=== PATIENT | female | born 2000 | race Caucasian/White ===

== ENCOUNTER 2023-11-24 10:25 | Observation (INO) | payer OTHER, SELFPAY ==
[2023-11-24] VITALS (17 sets, daily range): BP systolic 113–133; BP diastolic 59–81; PULSE 67–117; RESP 12–18; TEMP 35.8–36.6; O2SAT 96–100; BMI 29.4
--- NOTE | 2023-11-24 10:53 | CT_ITS ---
STUDY: CT ABDOMEN AND PELVIS WITH CONTRAST REASON FOR EXAM: Female, 23 years old. RLQ pain RADIATION DOSAGE (If Supplied By Facility): CTDIvol = ( 10.61 ) mGy, DLP = ( 787.20 ) mGycm TECHNIQUE: Transaxial images were obtained from the dome of the diaphragm to the symphysis pubis without oral contrast. IV 100mL Isovue-370 was administered. Sagittal and coronal images were reconstructed. Individualized dose optimization techniques were used for this CT. COMPARISON: None. FINDINGS: The visualized lung bases are unremarkable. The visualized portions of the heart are within normal limits. Normal liver. Normal gallbladder and extrahepatic biliary system. Normal spleen. Normal pancreas. Normal bilateral adrenal glands. Normal right kidney. Normal left kidney. Normal visualized stomach. There is thickening of the terminal ileum. Circumferential wall thickening with increased markings in the surrounding mesenteric fat involving the right hemicolon. This is in keeping with a colitis. There is non-visualization of the appendix. Normal abdominal aorta. Normal inferior vena cava. Normal retroperitoneum. Normal urinary bladder. Normal abdominal wall. Normal osseous structures. CT/Abdomen/Pelvis W IV Cont ONLY IMPRESSION: Findings suggestive of colitis of the right hemicolon with circumferential thickening of the terminal ileum. Electronically Signed: Jorge Knowles MD at 11:53 EDT ,
--- NOTE | 2023-11-24 10:53 | EX.ED.DYSGE1 ---
HPI History of Present Illness Chief Complaint: Abd Pain Informant: patient Onset/Context/Timing Onset: Days (2 days) Context: Gradual Onset Narrative Narrative: Patient presents secondary to right lower quadrant abdominal pain. Pain started yesterday and has been continuous in nature but does wax and wane. She states it initially started like a wringing sensation and now feels like a constant pressure. No fever or chills. She has had some diarrhea but no associated blood. No urinary symptoms. No known history of ovarian cyst. Last menstrual cycle was 3 and half weeks ago. [facility] Medical History (Updated 11/24/23 @ 14:[address] Payal Dong MD) Depression ADHD Tonsillectomy planned Home Medications ?Medication ?Instructions ?Recorded ?Last Taken ?Type dextroamphetamine-amphetamine 5 mg 10 mg PO DAILY 11/24/23 Unknown History tablet (Adderall) sertraline 20 mg/mL oral 20 mg PO DAILY 11/24/23 Unknown History concentrate (Zoloft) Allergy/AdvReac Type Severity Reaction Status Date / Time No Known Allergies Allergy Verified 11/24/23 10:26 Social History Smoking Status: Never smoker ROS ROS ED Constitutional Constitutional ED: Denies chills or fever(s) Eyes Eyes: Denies discharge from eye(s) ENT ENT ED: Denies discharge from eye(s), rhinorrhea or sore throat Cardiovascular Cardiovascular: Denies chest pain or palpitations Respiratory/Chest Respiratory/Chest: Denies cough or dyspnea Gastrointestinal Gastrointestinal: Reports abdominal pain, diarrhea and nausea; Denies vomiting Genitourinary Genitourinary ED: Denies dysuria Musculoskeletal Musculoskeletal: Denies back pain or extremity pain Integumentary Denies Abrasions or rash Neurologic Neurologic: Denies headache(s) or weakness Psychiatric Psychiatric: Denies anxiety or depression Allergic/Immunologic Allergic/Immunologic ED: Denies lip swelling or urticaria EXAM Physical Exam Const Vital Signs: 11/24/23 10:27 11/24/23 10:30 11/24/23 11:43 Temperature 96.5 F L 96.5 F L 97.6 F L Temperature Source Temporal Temporal Pulse Rate 92 92 88 Respiratory Rate 18 18 18 Blood Pressure 133/81 H 133/81 H 133/81 H Blood Pressure Mean 98 98 98 Pulse Ox 100 100 99 Oxygen Delivery Method Room Air 11/24/23 12:26 11/24/23 13:48 11/24/23 13:48 Temperature 98 F Temperature Source Oral Pulse Rate 72 67 71 Respiratory Rate 16 18 18 Blood Pressure 124/75 H 123/76 H 123/76 H Blood Pressure Mean 91 91 91 Pulse Ox 97 98 98 Oxygen Delivery Method Room Air Room Air Room Air Positive well nourished and well developed General Appearance ED: well developed HEENT Reports moist mucous membranes Eyes EOMs intact bilaterally Chest Wall inspection of chest normal and palpation of chest normal Resp normal respiratory effort and clear to auscultation bilaterally Cardio regular rate and regular rhythm GI GI Narrative: Abdomen soft with moderate tenderness in the right lower quadrant. Hypoactive bowel sounds. No guarding or rebound. Extremity normal to inspection Neuro oriented x3 and no sensory deficits noted Motor Exam: strength 5/5 throughout Psych mental status grossly normal Skin no rashes or lesions noted MDM MDM MDM Narrative Medical decision making narrative: IV line established. Patient declines pain medication at this time. Labwork obtained to evaluate for leukocytosis, anemia, and electrolyte derangement. Urinalysis obtained to evaluate for infection/hematuria. CT scan with IV contrast obtained to evaluate for potential appendicitis. History & Record Review Discussion w/independent historian: Patient Lab Data Attestation: I reviewed the patient's lab results. Labs: Laboratory Results - last 24 hr 11/24/23 10:40 WBC 7.8 RBC 4.68 Hgb 12.9 Hct 41.2 MCV 88.0 MCH 27.6 MCHC 31.3 L RDW Std Deviation 42.0 RDW Coeff of Shonda 12.9 Plt Count 314 MPV 10.0 Immature Gran % (Auto) 0.100 Neut % (Auto) 62.2 Lymph % (Auto) 29.9 [place] % (Auto) 4.9 Eos % (Auto) 2.3 Baso % (Auto) 0.6 Absolute Neuts (auto) 4.9 Absolute Lymphs (auto) 2.33 Nucleated RBC % 0 Sodium 138 Potassium 3.7 Chloride 108 H Carbon Dioxide 25.0 Anion Gap 5 BUN 10 Creatinine 0.88 Estim Creat Clear Calc 96.71 Est GFR (MDRD) Af Amer 102 Est GFR (MDRD) Non-Af 85 BUN/Creatinine Ratio 11.4 Glucose 96 Calcium 9.7 Serum , Qual NEGATIVE Urine Color Yellow Urine Clarity Sl. Cloudy Urine pH 6.0 Ur Specific [place] 1.010 Urine Protein Negative Urine Glucose (UA) Normal Urine Ketones Negative Urine Occult Blood Negative Urine Nitrite Negative Urine Bilirubin Negative Urine Urobilinogen Normal Ur Leukocyte Esterase 25 H Urine RBC 0 SEEN Urine WBC 0-5 SEEN Ur Squamous Epith Cells 0-5 SEEN Urine Bacteria 2+ Urine Mucus 0 SEEN Radiography Diagnostic Testing: Clinical Impression(s) from Imaging Studies Abdomen/Pelvis CT 11/24/23 10:53 IMPRESSION: Findings suggestive of colitis of the right hemicolon with circumferential thickening of the terminal ileum. Electronically Signed: Jorge Knowles MD at 11:53 EDT , Abdomen CT 11/24/23 12:24 IMPRESSION: Findings suggestive of appendicitis. Electronically Signed: Jorge Knowles MD at 14:30 EDT , Treatment and Re-Evaluation :: White blood cell count is normal at 7.8 with 62% neutrophils. Hemoglobin is 12.9. Chemistry studies unremarkable. Urinalysis reveals no evidence of acute infection but does have 2+ bacteria. test negative. Initial CT scan with IV contrast is read by radiology as findings suggestive of colitis of the right hemicolon with circumferential thickening of the terminal ileum. Just after the patient got scans, Dr. Daniel was in the ER to see another patient. I reviewed the CT images with him. He was concerned the patient had appendicitis. After the read comes back with possible colitis, I spoke with Dr. Daniel again. He asked that we repeat the CT scan with p.o. contrast. The reading on the second CT is read as acute appendicitis. JHONATAN for the surgical group is in the room evaluate the patient at this time and has already ordered antibiotics. Discharge Plan Triage Chief Complaint: Abd Pain ED Provider: Payal Dong Dx/Rx/DC Orders Clinical Impression: Acute appendicitis Prescriptions: No Action dextroamphetamine-amphetamine [Adderall] 5 mg tablet 10 mg PO DAILY sertraline [Zoloft] 20 mg/mL concentrate 20 mg PO DAILY Primary Care Provider: Rere Aceves NP Referrals: Rere Aceves NP, [employer] [Primary Care Provider] - Print Language: Polish Disposition Disposition: Acute Care [facility]
[2023-11-24 10:58] LABS: Mucous, Urine 0 SEEN /hpf (<or=2+); Red Blood Cells-Urine 0 SEEN /hpf (0-5)
[2023-11-24] MEDS: 0.9% Normal Saline (1000mL) 1,000 ML 150 ML IV (11:00)
[2023-11-24 11:01] LABS: Color, Urine Yellow (Yellow); Glucose, Dipstick Normal (Normal); Ketone-Dipstick Negative (Negative); Leukocyte Esterase-Dipstick 25 /ul (Negative); Nitrite-Dipstick Negative (Negative); Occult Blood-Urine Negative /ul (Negative); Protein-Dipstick Negative (Negative); Urine Bilirubin Dipstick Negative (Negative); Urine Clarity Sl. Cloudy (Clear); Urine Urobilinogen Normal (Normal)
[2023-11-24 11:05] LABS: Absolute Lymphocyte Count 2.33 X10^3/uL (0.83-4.51); Absolute Neutrophil Count 4.9 X10^3/uL (2.0-7.7); Basophil# 0.05 X10^3/uL; Basophil% 0.6 % (0-1); Eosinophil# 0.18 X10^3/uL; Eosinophils% 2.3 % (0-5); Hematocrit 41.2 % (37-47); Hemoglobin 12.9 g/dL (12.0-15.0); Lymphocyte # 2.33 X10^3/ul (0.83-4.51); Lymphocyte % 29.9 % (19-41); Mean Corp Hgb Conc 31.3 g/dL (32-36); Mean Corpuscular Hgb 27.6 pg (27.0-32.0); Monocyte# 0.38 X10^3/uL; Monocyte% 4.9 % (0-10); NRBC Flagged by Analyzer 0 % (0-5); Neutrophil # 4.85 X10^3/uL (2.7-7.7); Neutrophil % 62.2 % (47-70); Platelet Count 314 K/mm3 (150-450); RBC Distribution Width CV 12.9 % (11.6-14.6); Red Blood Count 4.68 M/mm3 (4.2-5.4); White Blood Count 7.8 K/mm3 (4.4-11.0)
[2023-11-24 11:09] LABS: Bacteria 2+ /hpf (None Seen); Squamous Epithelial Cells - UA 0-5 SEEN /hpf (5-10); White Blood Cells 0-5 SEEN /hpf (0-5)
[2023-11-24 11:11] LABS: Internal QC Validated? YES +Cl - CLEAR BKGD; Pregnancy, Serum, hCG Quali. NEGATIVE Negative
[2023-11-24 11:16] LABS: Anion Gap 5 (5-15); BUN 10 mg/dL (7-18); BUN/Creat Ratio 11.4 RATIO (10-20); Calcium,Total 9.7 mg/dL (8.5-10.1); Chloride 108 mmol/L (98-107); Creatinine, Serum 0.88 mg/dL (0.55-1.02); EST Glomerular Filtration Rate 85 mL/min (>60); Est Glom Filt Rate - Afr Amer 102 mL/min (>60); Estimated Creatinine Clearance 96.71 ml/min; Glucose 96 mg/dL (74-106); Potassium 3.7 mmol/L (3.5-5.1); Sodium Level 138 mmol/L (136-145)
--- NOTE | 2023-11-24 12:24 | CT_ITS ---
STUDY: CT ABDOMEN AND PELVIS WITHOUT CONTRAST REASON FOR EXAM: Female, 23 years old. RLQ pain -- PO CONTRAST ONLY RADIATION DOSAGE (If Supplied By Facility): CTDIvol = ( 11.42 ) mGy, DLP = ( 585.27 ) mGycm TECHNIQUE: Transaxial images were obtained from the dome of the diaphragm to the symphysis pubis without oral contrast, and without intravenous contrast. Sagittal and coronal images were reconstructed. Individualized dose optimization techniques were used for this CT. COMPARISON: Comparison is made with prior study done earlier in the day. FINDINGS: The visualized lung bases are unremarkable. The visualized portions of the heart are within normal limits. Normal liver. Normal gallbladder and extrahepatic biliary system. Normal spleen. Normal pancreas. Normal bilateral adrenal glands. Normal right kidney. Normal left kidney. Normal visualized stomach. Normal small intestine. Normal colon. There is a tubular, thick-walled appendix (>7mm), consistent with acute appendicitis. Normal abdominal aorta. Normal inferior vena cava. Normal retroperitoneum. Normal urinary bladder. Normal abdominal wall. Normal osseous structures. CT/Abdomen/Pel W ORAL Cont Only IMPRESSION: Findings suggestive of appendicitis. Electronically Signed: Jorge Knowles MD at 14:30 EDT ,
[2023-11-24] MEDS: Ondansetron 4 MG/2 ML Vial IV (12:29)
[2023-11-24] MEDS: Morphine 4 MG/ML Syringe IV (12:30)
[2023-11-24] MEDS: HYDROmorphone 0.5 MG/0.5 ML SYRINGE IV (13:57)
--- NOTE | 2023-11-24 14:11 | ED.RN ---
Pt complaining of chest pain. Dr. Dong aware
[2023-11-24] MEDS: Piperacil/Tazobactam 3.375 GM in 0.9% Normal Saline (50mL MB+) 50 ML IV (14:50)
--- NOTE | 2023-11-24 15:04 | PCM.HP.STD ---
HPI - General General Date of Admission: 11/24/23 Date of Service: 11/24/23 Chief Complaint: Right lower quadrant pain HPI Narrative JATIN YEH, is a 23 F who presents with a 1 day history of right lower quadrant pain. Patient notes yesterday morning feeling nauseated. Patient notes abdominal pain started with the sensation of wanting to have a bowel movement. She attempted and was unable to relieve her pain. She then noted a sharp, twisting sensation in the right lower quadrant. She attempted to have a bowel movement again without any relief. Patient denies vomiting. She notes lack of appetite. She denies fever. She notes the pain continued ,which brought her into the ED. Patient notes having a previous tonsillectomy without any concerns or side effects from anesthesia. She denies any previous abdominal surgeries. She notes having EKG's completed for sports physical. She notes following having COVID, she had an abnormal EKG which lead to an ECHO. She notes the ECHO was normal and was not instructed to follow-up with a community relations advisor. She denies any pulmonary issues. She was recently on an antibiotic 1 week ago for a stye in her eye. She notes this has resolved. Patient takes Adderall, Zoloft and control on a daily basis. CT scan of the ab/pel demonstrated colitis at the terminal ileum. CT scan was repeated with oral contrast and demonstrated acute appendicitis. WBC 7.8, Hgb 12.9, Hct 41.2 and plt count 314. No left shift. [facility] Medical History (Updated 11/24/23 @ 15:15 by Silvia ISRAEL PA-C) Depression ADHD Tonsillectomy planned Home Medications ?Medication ?Instructions ?Recorded ?Last Taken ?Type dextroamphetamine-amphetamine 5 mg 10 mg PO DAILY 11/24/23 Unknown History tablet (Adderall) sertraline 20 mg/mL oral 20 mg PO DAILY 11/24/23 Unknown History concentrate (Zoloft) Allergy/AdvReac Type Severity Reaction Status Date / Time No Known Allergies Allergy Verified 11/24/23 10:26 Social History Smoking Status: Never smoker ROS Constitutional Constitutional: Reports systems reviewed and no addt'l complaints, except as documented Eyes Eyes: Reports systems reviewed and no addt'l complaints, except as documented ENT HEENT: Reports systems reviewed and no addt'l complaints, except as documented Cardiovascular Cardiovascular: Reports systems reviewed and no addt'l complaints, except as documented Respiratory/Chest Respiratory/Chest: Reports systems reviewed and no addt'l complaints, except as documented Gastrointestinal Gastrointestinal: Reports systems reviewed and no addt'l complaints, except as documented Genitourinary Genitourinary: Reports systems reviewed and no addt'l complaints, except as documented Musculoskeletal Musculoskeletal: Reports systems reviewed and no addt'l complaints, except as documented Integumentary Integumentary: Reports systems reviewed and no addt'l complaints, except as documented Neurologic Neurologic: Reports systems reviewed and no addt'l complaints, except as documented Psychiatric Psychiatric: Reports systems reviewed and no addt'l complaints, except as documented Endocrine Endocrinology: Reports systems reviewed and no addt'l complaints, except as documented Hematologic/Lymphatic Hematologic/Lymphatic: Reports systems reviewed and no addt'l complaints, except as documented Allergic/Immunologic Allergic/Immunologic: Reports systems reviewed and no addt'l complaints, except as documented Vital Signs Vital Signs Vital Signs: 11/24/23 10:27 11/24/23 10:30 11/24/23 11:43 Temperature 96.5 F L 96.5 F L 97.6 F L Temperature Source Temporal Temporal Pulse Rate 92 92 88 Respiratory Rate 18 18 18 Blood Pressure 133/81 H 133/81 H 133/81 H Blood Pressure Mean 98 98 98 Pulse Ox 100 100 99 Oxygen Delivery Method Room Air 11/24/23 12:26 11/24/23 13:48 11/24/23 13:48 Temperature 98 F Temperature Source Oral Pulse Rate 72 67 71 Respiratory Rate 16 18 18 Blood Pressure 124/75 H 123/76 H 123/76 H Blood Pressure Mean 91 91 91 Pulse Ox 97 98 98 Oxygen Delivery Method Room Air Room Air Room Air 11/24/23 14:49 Temperature 97.8 F Temperature Source Pulse Rate 82 Respiratory Rate 12 Blood Pressure 119/61 Blood Pressure Mean 80 Pulse Ox 99 Oxygen Delivery Method Weight Weight: 166 lb 4.8 oz Body Mass Index (BMI) 29.4 Physical Exam Const alert, oriented x3 and no apparent distress HEENT normocephalic and head/scalp atraumatic Eyes PERRL Neck full ROM Lymph Lymphatic: no lymphadenopathy noted Resp normal respiratory effort and clear to auscultation bilaterally Cardio regular rate and regular rhythm GI GI Narrative: Abdomen- soft, tenderness with guarding in the RLQ, hypoactive bowel sounds. Positive McBurney's. no CVA tenderness Back/Spine no CVA tenderness Extremity normal to inspection Skin no rashes or lesions noted Neuro no focal motor deficits and no sensory deficits noted Psych mental status grossly normal and thought process normal Results Lab / Micro Data 11/24/23 10:40 11/24/23 10:40 Labs: Laboratory Results - last 24 hr 11/24/23 10:40: WBC 7.8, RBC 4.68, Hgb 12.9, Hct 41.2, MCV 88.0, MCH 27.6, MCHC 31.3 L, RDW Std Deviation 42.0, RDW Coeff of Shonda 12.9, Plt Count 314, MPV 10.0, Immature Gran % (Auto) 0.100, Neut % (Auto) 62.2, Lymph % (Auto) 29.9, [place] % (Auto) 4.9, Eos % (Auto) 2.3, Baso % (Auto) 0.6, Absolute Neuts (auto) 4.9, Absolute Lymphs (auto) 2.33, Nucleated RBC % 0, Sodium 138, Potassium 3.7, Chloride 108 H, Carbon Dioxide 25.0, Anion Gap 5, BUN 10, Creatinine 0.88, Estim Creat Clear Calc 96.71, Est GFR (MDRD) Af Amer 102, Est GFR (MDRD) Non-Af 85, BUN/Creatinine Ratio 11.4, Glucose 96, Calcium 9.7, Serum , Qual NEGATIVE, Urine Color Yellow, Urine Clarity Sl. Cloudy, Urine pH 6.0, Ur Specific [place] 1.010, Urine Protein Negative, Urine Glucose (UA) Normal, Urine Ketones Negative, Urine Occult Blood Negative, Urine Nitrite Negative, Urine Bilirubin Negative, Urine Urobilinogen Normal, Ur Leukocyte Esterase 25 H, Urine RBC 0 SEEN, Urine WBC 0-5 SEEN, Ur Squamous Epith Cells 0-5 SEEN, Urine Bacteria 2+, Urine Mucus 0 SEEN Imaging Radiology Impression Abdomen/Pelvis CT 11/24/23 10:53 IMPRESSION: Findings suggestive of colitis of the right hemicolon with circumferential thickening of the terminal ileum. Electronically Signed: Jorge Knowles MD at 11:53 EDT , Abdomen CT 11/24/23 12:24 IMPRESSION: Findings suggestive of appendicitis. Electronically Signed: Jorge Knowles MD at 14:30 EDT , Assessment & Plan Assessment/Plan (1) Acute appendicitis: QUALIFIERS: Acute appendicitis type: with localized peritonitis Appendicitis gangrene presence: unspecified whether gangrene present Appendicitis perforation presence: unspecified whether perforation present Appendicitis abscess presence: unspecified whether abscess present Qualified Code(s): K35.30 - Acute appendicitis with localized peritonitis, without perforation or gangrene PLAN: I am seeing this patient in conjunction with Dr. Daniel. Patient presented with a 1 day history of right lower quadrant pain with associated nausea. CT scan with oral contrast confirms appendicitis. Dr. Daniel will plan to perform a laparoscopic appendectomy with possible ileocecectomy and possible drain placement if perforation is found. Procedure details, risks and benefits have been explained. Patient and her parents have had the opportunity to ask and have questions answered. Patient verbally understands and agrees with the plan. Patient is currently in school to become a teacher. Patient is aware that she may need to stay overnight for observation and is agreeable to this. Thank you for allowing us to participate in this patient's care. Charges/Coding Visit Charges OBSV E&M: 87609 Observ/hosp same date L2
--- NOTE | 2023-11-24 15:50 | PRE.ANES_ITS ---
ASA Classification* ASA Classification ASA Classification: 1 Assessment & Plan Anesthesia* Anesthesia Assessment Anesthesia Assessment: Discussed sedation and/or anesthesia options, risks, benefits, and alternatives with patient/parents/legal guardian/POA. Questions invited. The patient/parents/legal guardian/POA seems to understand and agrees to proceed with anesthesia plan. Reviewed the physical assessment, medical history, allergy history and patient home medications list prior to surgery/procedure/anesthetic and documented any changes. Performed airway and anesthesia risk assessments. Anesthesia Type Anesthesia Type: General (Patient noted adverse reaction to dilaudid) History Source History Obtained from:: Patient and Chart Pre-Assessment Diagnosis/Proposed Procedure Planned Operative Procedure(s): Laparoscopic appendectomy Anesthesia History Anesthesia History - circuit recorder: Anesthesia History - circuit recorder Hx Hospitalization Any Problems With Anesthesia No 11/24/23 14:54 Cholinesterase deficiency You/Your Family Experience fever (hyperthermia) with Relationship Recent Exposure to Contagious Disease Does patient have nerve No 11/24/23 14:54 stimulator Patient instructed to have device shut off --Does patient have Pacemaker or ICD? When Was Last Pacemaker Check QUESTION #4 FULL TEXT: You/Your Family Experience fever (hyperthermia) with Anesthesia Last Oral Intake Last Oral intake: Last Oral Intake NPO since Meds taken in AM with sips of water? Meds patient instructed to take am of surgery PONV PONV - circuit recorder: PONV - circuit recorder Female HX of Motion Sickness HX of N/V After Surgery Non-Smoker Duration of Surgery greater than 60 minutes Number of Risk Factors PONV Score Height & Weight Height & Weight: Anesthesia: Height & Weight Height 5 ft 3 in 11/24/23 14:54 Weight: 75.432 kg 11/24/23 14:54 Body Mass Index (BMI) 29.4 11/24/23 14:54 Respiratory Assessment Respiratory Assessment - circuit recorder: Respiratory Tract Infection Hx - circuit recorder Hx Respiratory Tract Infection STOP Sleep Apnea STOP Sleep Apnea - circuit recorder: STOP Sleep Apnea - circuit recorder Hx Hypertension No 11/24/23 14:54 Hx Sleep Apnea No 11/24/23 14:54 CPAP BIPAP Do you snore loudly (louder No 11/24/23 14:54 than talking or can be heard Do you often feel tired/ No 11/24/23 14:54 fatigued/ sleepy during daytime? Has anyone observed you stop No 11/24/23 14:54 breathing during sleep? STOP Results Negative 11/24/23 14:54 QUESTION #5 FULL TEXT : Do you snore loudly (louder than talking or can be heard through closed doors)? Tobacco Use History Tobacco Use History - circuit recorder: Tobacco Use History - circuit recorder Tobacco Use Smoking Status Never smoker 11/24/23 10:42 Hx Tobacco Use Years Smoking Packs Smoked per Day Smoking Cessation Date was within the last 15 years Hx Smoking Cessation Date Hx Smoking Cessation Counseling Hematologic Medial History Hematologic Hx - circuit recorder: Hematologic Medical Hx - contact manager Hx of Blood Transfusion Hx of Transfusion in last 3 Months Date of Last Transfusion (if within last 3 months) Ever experience any problems with transfusion(s)? Specify any problems Hx of Preganancy in last 3 Months Nurse Filling Out Transfusion & Questions: Date: Time: Patient unable to answer at this time (ie. confused, unrespo /Reproduction History /Reproductive History - circuit recorder: /Reproductive Hx- circuit recorder Hx Now Gestational Age (in weeks): EDC: Hx Hx Para Hx Section SAB No 11/24/23 10:27 Any additional information?: Yes Hx Now: No : No Active Medications Active Medications: Current Medications Generic Name Dose Route Start Last Admin Trade Name Freq PRN Reason Stop Dose Admin Sodium Chloride 1,000 mls @ 150 mls/hr 11/24/23 10:55 11/24/23 11:00 IV 150 mls/hr .[id number] JEANE Administration Anesthesia Focused Assessment* Temperature: 97.8 F Pulse Rate: 82 Blood Pressure: 119/61 Respiratory Rate: 12 Pulse Ox: 99 Airway Assessment Mouth opens: >3 cm Mallampati Score: II Teeth Condition: Chipped/Broken (#8 previously chipped and now bonded) Neck Range of motion (ROM): Full ROM Focused Labs Anesthesia Preop lab: CBC WBC 7.8 K/mm3 (4.4-11.0) 11/24/23 10:40 RBC 4.68 M/mm3 (4.2-5.4) 11/24/23 10:40 Hgb 12.9 g/dL (12.0-15.0) 11/24/23 10:40 Hct 41.2 % (37-47) 11/24/23 10:40 Plt Count 314 K/mm3 (150-450) 11/24/23 10:40 CHEMISTRY Potassium 3.7 mmol/L (3.5-5.1) 11/24/23 10:40 Sodium 138 mmol/L (136-145) 11/24/23 10:40 BUN 10 mg/dL (7-18) 11/24/23 10:40 Creatinine 0.88 mg/dL (0.55-1.02) 11/24/23 10:40 Glucose 96 mg/dL (74-106) 11/24/23 10:40 COAG Review of Systems (Anesthesia) ROS Narrative System reviewed and no additional complaints, except as documented. [facility]LY [facility] Medical History Depression ADHD Tonsillectomy planned Home Medications ?Medication ?Instructions ?Recorded ?Last Taken ?Type dextroamphetamine-amphetamine 5 mg 10 mg PO DAILY 11/24/23 Unknown History tablet (Adderall) sertraline 20 mg/mL oral 20 mg PO DAILY 11/24/23 Unknown History concentrate (Zoloft) Allergy/AdvReac Type Severity Reaction Status Date / Time No Known Allergies Allergy Verified 11/24/23 10:26 Surgical History (Updated 11/24/23 @ 16:[address] Fred Cooper MD) S/P right knee arthroscopy History of tonsillectomy Social History Smoking Status: Never smoker
[2023-11-24] MEDS: Bupiv/Epi 0.25% 30 ML Vial (16:39)
--- NOTE | 2023-11-24 16:43 | OP.PCM_ITS ---
Report of Operation Date of Procedure: 11/24/23 Pre-Operative Diagnosis: Acute appendicitis Post-Operative Diagnosis: Same Surgery/Procedure Performed:: Laparoscopic appendectomy Description of Surgical Findings:: Inflamed appendix Type of Anesthesia: General/Regional Specimen's removed: Appendix Estimated Blood Loss (mL): 5 Description of Procedure: The patient was brought into the operating room and general anesthesia was induced. The left arm was tucked and the abdomen was prepped and draped in usual sterile fashion. A small midline incision was made superior to the umbilicus and deepened to the level of the fascia. The fascia was elevated and incised. The peritoneum was also elevated and incised. A finger sweep was performed and a balloon trocar was placed into the abdomen and inflated. The abdomen was insufflated to 15 mmHg and the camera was inserted and the abdomen was inspected for any injuries upon entering the abdomen. There were none. The patient was placed in Trendelenburg position and a 5 mm ports placed in the left lower quadrant and suprapubic areas under direct visualization. Next using atraumatic bowel graspers the appendix was identified. The appendix was grasped and elevated and Enseal was used to take down the mesoappendix. A stapler was used to come across the base of the appendix. The appendix was then placed in Endo Catch bag and removed through the umbilical incision. The staple line was inspected and found to be hemostatic and intact. The 2 5 mm ports are removed under direct visualization. The balloon trocar was deflated and removed and all the air was removed from the abdomen. The umbilical incision fascia was closed with an 0 Vicryl [id number] suture. The incisions were then irrigated with saline and dried. Local anesthetic was injected into the incision sites. The skin incisions were then closed with interrupted 4-0 Monocryl suture and Steri- Strips. Bandages were applied and the patient was awoken and taken to PACU in stable condition. Patient tolerated the procedure well. Admit VTE Documentation VTE Mechan Device Prophylaxis: SCD's
--- NOTE | 2023-11-24 16:57 | PCM.POST.ANE ---
Anesthesia: Postop Eval I Current Vital Signs Temperature: 97 F Pulse Rate: 99 Blood Pressure: 126/73 Respiratory Rate: 14 Pulse Ox: 100 Oxygen Delivery Method: Room Air Assessment Airway patent: Yes Spontaneous unlabored respirations: Yes Mental status: Awake and Calm nausea: No Vomiting: No Anesthesia Complication: No Fluid Hydration Crystalloid volume administer (ml): 500 Total IV fluid infused: 500 Progress Note Anesthesia document: Postop Eval 1 completed: Yes
--- NOTE | 2023-11-24 17:28 | POSTOPAN2_ITS ---
Anesthesia Postop Eval I Sum Postop Eval Completion status Anesthesia document: Postop Eval 1 completed: Yes Anesthesia Postop Eval I Summary Anesthesia Postop Eval I Summary: Anesthesia Postop Eval I: Assessment Summary Airway patent Yes 11/24/23 16:58 CARE COORDINATION MANAGER.MDOT Spontaneous unlabored Yes 11/24/23 16:58 CARE COORDINATION MANAGER.MDOT respirations Mental status Awake,Calm 11/24/23 16:58 CARE COORDINATION MANAGER.MDOT nausea No 11/24/23 16:58 CARE COORDINATION MANAGER.MDOT Vomiting No 11/24/23 16:58 CARE COORDINATION MANAGER.MDOT Anesthesia Postop Eval I: Fluid Summary Crystalloid volume administer 500 11/24/23 16:58 CARE COORDINATION MANAGER.MDOT (ml) Colloids volume administered ( ml) Blood Product volume administered (ml) Total IV fluid infused 500 11/24/23 16:58 CARE COORDINATION MANAGER.MDOT Anesthesia Postop Eval I: Summary Notes Anesthesia Complication No 11/24/23 16:58 CARE COORDINATION MANAGER.MDOT Anesthesia Complication Comment: Post-operative progress note Anesthesia: Postop Eval II Evaluation Mental status: Awake and Calm Pain Level: 1 nausea: Yes Vomiting: No Complications Anesthesia Complication: No
--- NOTE | 2023-11-24 17:28 | PCM.POSTANE2 ---
Anesthesia Postop Eval I Sum Postop Eval Completion status Anesthesia document: Postop Eval 1 completed: Yes Anesthesia Postop Eval I Summary Anesthesia Postop Eval I Summary: Anesthesia Postop Eval I: Assessment Summary Airway patent Yes 11/24/23 16:58 METAL DRILL PRESS OPERATOR.MDOT Spontaneous unlabored Yes 11/24/23 16:58 METAL DRILL PRESS OPERATOR.MDOT respirations Mental status Awake,Calm 11/24/23 16:58 METAL DRILL PRESS OPERATOR.MDOT nausea No 11/24/23 16:58 METAL DRILL PRESS OPERATOR.MDOT Vomiting No 11/24/23 16:58 METAL DRILL PRESS OPERATOR.MDOT Anesthesia Postop Eval I: Fluid Summary Crystalloid volume administer 500 11/24/23 16:58 METAL DRILL PRESS OPERATOR.MDOT (ml) Colloids volume administered ( ml) Blood Product volume administered (ml) Total IV fluid infused 500 11/24/23 16:58 METAL DRILL PRESS OPERATOR.MDOT Anesthesia Postop Eval I: Summary Notes Anesthesia Complication No 11/24/23 16:58 METAL DRILL PRESS OPERATOR.MDOT Anesthesia Complication Comment: Post-operative progress note Anesthesia: Postop Eval II Evaluation Mental status: Awake and Calm Pain Level: 1 nausea: Yes Vomiting: No Complications Anesthesia Complication: No
[2023-11-24] MEDS: 0.9% Normal Saline (1000mL) 1,000 ML 60 ML IV (18:52)
[2023-11-24] MEDS: Acetaminophen 325 MG Tablet 650 MG PO (20:21)
[2023-11-24] MEDS: oxyCODONE 5 MG Tablet PO (21:43)
--- NOTE | 2023-11-25 | APP_PTH ---
PATIENT: JATIN YEH LOC: [facility]3 U#:[id number] AGE/SX: 23/ ROOM: NV310 RE11/24/[address]: Dr. Hernandez Daniel MD : 2000 BED: 1 DIS: 11/25/2023 SPEC #: [id number] RECD: 11/25/23 12:00 STATUS: KAPIL SURYA #: [id number] BRENDA: 11/25/23 00:[address]: Hernandez Daniel DEPT: SURGICAL PATHOLOGY RECD BY: Mykel Borrero ENTERED: 11/25/23 12:00 SP TYPE: APPENDIX OTHR DR: Reer Aceves, NEHA Tissues: Appendix, NOS Procedures: Surgery Specimen Level III HEADER OPERATION: Laparoscopic, appendectomy PRE-OP DIAGNOSIS: Acute appendicitis TISSUE SUBMITTED: Appendix MICROSCOPIC DIAGNOSIS Appendix, appendectomy: Acute appendicitis. Acute serositis. AM/mr 11/26/2023 MICROSCOPIC DESCRIPTION Slides are reviewed. GROSS DESCRIPTION Received in fixative is one container labeled with the patient's name and designated appendix. The specimen consists of virmaform appendix measuring 6.5 cm in length and 0.7 cm in average diameter. No gross perforations are evident. Serial sections reveal a patent lumen. No mass lesion is identified. Wax Pattern Coater sections are submitted in one cassette. / AM: 11/25/2023 TC:2 CPT: 19325
[2023-11-25 02:21] VITALS: BP 100/61; PULSE 86; RESP 16; TEMP 36.7; O2SAT 98
[2023-11-25] MEDS: Acetaminophen 325 MG Tablet 650 MG PO ×2 (02:35→06:22)
[2023-11-25 06:14] VITALS: BP 109/66; PULSE 82; RESP 16; TEMP 36.7; O2SAT 98
--- NOTE | 2023-11-25 08:03 | PCM.PN.SRG ---
Subjective Subjective Patient reports tolerating clears. Pain is well-controlled. Objective Data Objective Data Vital Signs: Vital Signs Temp Pulse Resp BP Pulse Ox O2 Del Method 98.1 F 82 16 109/66 98 Room Air 11/25/23 06:14 11/25/23 06:14 11/25/23 06:14 11/25/23 06:14 11/25/23 06:14 11/25/23 06:14 Oxygen Delivery Method Room Air Weight: 166 lb 4.8 oz Body Mass Index (BMI) 29.4 Intake & Output: Intake and Output for Last 24 Hours 11/23/23 11/24/23 11/25/23 23:59 23:59 23:59 Intake Total 1050 / 1350 400 / 400 Balance 1050 / 1350 400 / 400 Lab / Micro Data 11/24/23 10:40 11/24/23 10:40 Labs: Laboratory Results - last 24 hr 11/24/23 10:40: WBC 7.8, RBC 4.68, Hgb 12.9, Hct 41.2, MCV 88.0, MCH 27.6, MCHC 31.3 L, RDW Std Deviation 42.0, RDW Coeff of Shonda 12.9, Plt Count 314, MPV 10.0, Immature Gran % (Auto) 0.100, Neut % (Auto) 62.2, Lymph % (Auto) 29.9, [place] % (Auto) 4.9, Eos % (Auto) 2.3, Baso % (Auto) 0.6, Absolute Neuts (auto) 4.9, Absolute Lymphs (auto) 2.33, Nucleated RBC % 0, Sodium 138, Potassium 3.7, Chloride 108 H, Carbon Dioxide 25.0, Anion Gap 5, BUN 10, Creatinine 0.88, Estim Creat Clear Calc 96.71, Est GFR (MDRD) Af Amer 102, Est GFR (MDRD) Non-Af 85, BUN/Creatinine Ratio 11.4, Glucose 96, Calcium 9.7, Serum , Qual NEGATIVE, Urine Color Yellow, Urine Clarity Sl. Cloudy, Urine pH 6.0, Ur Specific [place] 1.010, Urine Protein Negative, Urine Glucose (UA) Normal, Urine Ketones Negative, Urine Occult Blood Negative, Urine Nitrite Negative, Urine Bilirubin Negative, Urine Urobilinogen Normal, Ur Leukocyte Esterase 25 H, Urine RBC 0 SEEN, Urine WBC 0-5 SEEN, Ur Squamous Epith Cells 0-5 SEEN, Urine Bacteria 2+, Urine Mucus 0 SEEN Radiography Diagnostic Testing: Radiology Impression Abdomen/Pelvis CT 11/24/23 10:53 IMPRESSION: Findings suggestive of colitis of the right hemicolon with circumferential thickening of the terminal ileum. Electronically Signed: Jorge Knowles MD at 11:53 EDT , Abdomen CT 11/24/23 12:24 IMPRESSION: Findings suggestive of appendicitis. Electronically Signed: Jorge Knowles MD at 14:30 EDT , Physical Exam Const oriented x3 and no apparent distress Resp normal respiratory effort GI soft to palpation and non-tender Assessment & Plan Assessment/Plan (1) Acute appendicitis: QUALIFIERS: Acute appendicitis type: with localized peritonitis Appendicitis gangrene presence: unspecified whether gangrene present Appendicitis perforation presence: unspecified whether perforation present Appendicitis abscess presence: unspecified whether abscess present Qualified Code(s): K35.30 - Acute appendicitis with localized peritonitis, without perforation or gangrene PLAN: Patient doing well after laparoscopic appendectomy. I will discharge her home today after tolerating regular breakfast. She was given postoperative instructions and will follow-up with me in 2 weeks. Hernandez Daniel MD Pager: [facility] [address] [place] [address], [address] [place] [address] Office:
--- NOTE | 2023-11-25 08:04 | EX.PCM.DISCH ---
Discharge Instructions Procedure Appendectomy Diet Discharge Diet: Light diet - advance as tolerated Activity Discharge Activity: May Not Drive (for 2-3 days or while taking narcotic pain medications.) and May Shower May resume sexual activity in: 2 weeks Lifting Restrictions: 20 lbs for 2 weeks Additional Activity Instructions:: Okay to shower but we 2 weeks before swimming or going in a bath Alternate ibuprofen and Tylenol for pain control, oxycodone for breakthrough pain Dressing / Incision Call your doctor if your incision/area has: Continuous Slow Oozing, Sudden Increased Bleeding, Increased Pain/ Swelling, Increased Redness and Foul Smelling Discharge Call your doctor if you observe: Fever of 101 or Higher Suture Line Care: Avoid Pulling/Pushing and Avoid Pinching/Bending Remove Dressing in: 2 days (Remove clear bandages in 2 days, remove Steri-Strips in 7 to 10 days) Cleanse incision/area with: Soap & Water Additional Dressing/Incision Instructions:: Keep dressing clean and dry. Change or remove dressing in 2 days. Leave steri strips for 1 week. May protect with a gauze bandaid. Follow Up Care Please Follow Up With: Hernandez Daniel MD When: Please call to schedule 2 week follow up appointment. [phone] Test Results: Test results from this visit will be discussed in further detail at your follow-up appointment, if applicable. Discharge Plan Admission Admit Date/Time: 11/24/23 16:45 Attending Provider: Hernandez Daniel Primary Care Provider: Rere Aceves NP Discharge Orders/Prescriptions Prescriptions: New oxycodone 5 mg Tablet 5 - 10 mg PO Q4H PRN PRN (Reason: Pain Score 4-10) 5 Days Qty: 20 0RF Continued dextroamphetamine-amphetamine [Adderall] 5 mg tablet 10 mg PO DAILY sertraline [Zoloft] 20 mg/mL concentrate 20 mg PO DAILY Referrals / Follow Up: Rere Aceves NP, METAL SHEET ROLLER OPERATOR-C [Primary Care Provider] - Disposition Disposition (needs filled in before D/C Order can be placed): Home, Self Care
--- NOTE | 2023-11-25 09:14 | PHA.DC.MC.R ---
Pharmacy [facility] has performed discharge medication reconciliation and counseling for this patient. 1. OXYCODONE 5-10MG PO Q4H PRN PAIN 4-10 The patient's discharge medication list was reviewed for discrepancies and discrepancies were resolved. The patient was counseled on the following discharge medications and changes in medications for homegoing were reviewed. The Reason for Use, instructions for use, and potential side effects were reviewed for all new medications. The patient's questions regarding all of their medications were answered. The patient was able to verbally demonstrate an understanding of their discharge medications. Patient counseled by clinical pharmacy managerFlores. Medications at Discharge Home Medications dextroamphetamine-amphetamine 5 mg tablet (Adderall) 10 mg PO DAILY 11/24/23 sertraline 20 mg/mL oral concentrate (Zoloft) 20 mg PO DAILY 11/24/23 oxycodone 5 mg tablet 5 - 10 mg (1 - 2 x 5 mg) PO Q4H PRN PRN Pain Score 4-10 5 days #20 tabs 11/25/23
--- NOTE | 2023-11-25 09:20 | CASEMGMT ---
CONCEPCIÓN RODGERS NOTE: Pt being discharged. CONCEPCIÓN ORDGERS to room. Pt resting in bed. Parents @ bedside. Pt denies having any discharge needs/concerns. She states she did use a walker post-op, but has been OOB since then w/out a walker and did well, stating no balance issues and that she is close to her baseline. Parveen CUNNINGHAM RN, CM
== END 2023-11-25 10:00 | disposition home or self-care (01) ==
LOC: ED 14:50 → SDC 15:16 → MS3 15:19 → SDC 16:56 → MS3 16:56
PROVIDERS: Admitting Provider Surgery; Emergency Provider Emergency Medicine; PCP Nurse Practitioner Family; Visit Provider Surgery
PROC: 0DTJ4ZZ Resection of Appendix, Percutaneous Endoscopic Approach (ICD-10-PCS; CPT 44970; principal; 2023-11-24 14:40)
DX: K35.80 Unspecified acute appendicitis (principal); F90.9 Attention-deficit hyperactivity disorder, unspecified type; F32.A Depression, unspecified; Z79.899 Other long term (current) drug therapy
CPT/HCPCS: 44970; 00840; 74176; 74177; 80048; 81001; 84703; 85025; 88304; 96361; 96374; 96375; 99221; 99284; J7030; J7120; Q9967; A4216; C1760; G0378; J2405